=== PATIENT | female | born 1990 | race Asian ===

== ENCOUNTER 2019-08-01 19:56 | Emergency (ER) | payer BC, MEDICAID ==
--- NOTE | 2019-08-01 20:17 | Emergency Department Report ---
Blank Doc - Documentation Documentation: 28-year-old famle that presents with nausea, pelvic pain and vaginal bleeding. This initial assessment/diagnostic orders/clinical plan/treatment(s) is/are subject to change based on patient's health status, clinical progression and re- assessment by fellow clinical providers in the ED. Further treatment and workup at subsequent clinical providers discretion. Patient/guardians urged not to elope from the ED as their condition may be serious if not clinically assessed and managed. Initial orders include: 1- Patient sent to [facility] for further evaluation and treatment 2- labs 3- UA 4- US OB
[2019-08-01 20:43] LABS: Basophils # (Auto) 0.1 K/mm3 (0.0-0.1); Basophils % (Auto) 0.5 % (0.0-1.8); Eosinophils # (Auto) 0.1 K/mm3 (0.0-0.4); Eosinophils % (Auto) 0.8 % (0.0-4.3); Hematocrit 35.4 % (30.3-42.9); Hemoglobin 11.9 gm/dl (10.1-14.3); Lymphocytes # (Auto) 2.4 K/mm3 (1.2-5.4); Lymphocytes % (Auto) 19.6 % (13.4-35.0); Mean Corpuscular HGB Conc 34 % (30-34); Mean Corpuscular Volume 85 fl (79-97); Monocytes # (Auto) 0.6 K/mm3 (0.0-0.8); Monocytes % (Auto) 5.3 % (0.0-7.3); Platelet Count 213 K/mm3 (140-440); Red Blood Count 4.18 M/mm3 (3.65-5.03); Red Cell Distribution Width 12.7 % (13.2-15.2)
[2019-08-01 21:30] LABS: Bilirubin,Urine NEG (Negative); Blood,Urine SM (Negative); Color,Urine Straw (Yellow); Protein,Urine <15 mg/dL mg/dL (Negative); Urobilinogen,Urine < 2.0 mg/dL (<2.0); WBC,Urine < 1.0 /HPF (0.0-6.0)
--- NOTE | 2019-08-02 00:01 | Emergency Department Report ---
ED Female HPI - General Chief complaint: Vaginal Bleeding Stated complaint: 3 MNTS PREG BLEEDING Time Seen by Provider: 08/01/19 20:16 Source: patient, family, RN notes reviewed Mode of arrival: Ambulatory Limitations: No Limitations - History of Present Illness Initial comments: During the history and physical examination, including the gynecologic examination, I am unemployment insurance hearing officer and escorted by meat counter clerk Td Crowe MATZO FORMING MACHINE OPERATOR: [facility] This is a pleasant 28-year-old female, 1, para 0, last menstrual period April, presenting to the ER with crampy vaginal bleeding, minimal vaginal discomfort. No trauma. Bleeding is less than 2 pads soaked per hour. Denies urinary symptoms. Denies additional complaints, reports that she feels quite anxious. No history of miscarriage that she is aware of. MD Complaint: vaginal bleeding -: Gradual, hour(s) Location: suprapubic Radiation: non-radiating Severity: mild Quality: cramping Consistency: intermittent Improves with: none Worsens with: none Are you Now?: Yes Associated Symptoms: vaginal bleeding, abdominal pain - Related Data Sexually active: Yes Previous Rx's Medication Instructions Recorded Last Taken Type Ferrous Sulfate [Feosol 325 MG tab] 325 mg PO BID #60 tablet 03/17/16 Unknown Rx HYDROcodone/APAP 5-325 [[place] 1 each PO Q6HR PRN #30 tablet 03/17/16 Unknown Rx 5-325 mg TAB] Ibuprofen [Motrin] 800 mg PO Q8HR PRN #30 tablet 03/17/16 Unknown Rx Allergies Allergy/AdvReac Type Severity Reaction Status Date / Time No Known Allergies Allergy Verified 03/16/16 03:36 ED Review of Systems ROS: Stated complaint: 3 MNTS PREG BLEEDING Other details as noted in HPI Constitutional: denies: fever Eyes: denies: eye discharge ENT: denies: epistaxis Respiratory: denies: wheezing Cardiovascular: denies: syncope Gastrointestinal: denies: vomiting Genitourinary: abnormal menses Musculoskeletal: denies: back pain Skin: denies: lesions Neurological: denies: weakness Psychiatric: anxiety ED Past Medical Hx - Past Medical History Previous Medical History?: No Hx Hypertension: No Hx CVA: No Hx Heart Attack/AMI: No Hx Congestive Heart Failure: No Hx Diabetes: No Hx Deep Vein Thrombosis: No Hx Pulmonary Embolism: No Hx GERD: No Hx Liver Disease: No Hx Renal Disease: No Hx Sickle Cell Disease: No Hx Arthritis: No Hx Headaches / Migraines: No Hx Seizures: No Hx Kidney Stones: No Hx Psychiatric Treatment: No Hx Asthma: No Hx COPD: No Hx Tuberculosis: No Hx Dementia: No Hx HIV: No - Surgical History Past Surgical History?: No Hx Coronary Stent: No Hx Open Heart Surgery: No Hx Pacemaker: No Hx Internal Defibrillator: No Hx Cholecystectomy: No Hx Appendectomy: No Hx Breast Surgery: No - Social History Smoking Status: Never Smoker Substance Use Type: None - Medications Home Medications: Home Medications Medication Instructions Recorded Confirmed Last Taken Type Ferrous Sulfate [Feosol 325 MG tab] 325 mg PO BID #60 tablet 03/17/16 Unknown Rx HYDROcodone/APAP 5-325 [[place] 1 each PO Q6HR PRN #30 tablet 03/17/16 Unknown Rx 5-325 mg TAB] Ibuprofen [Motrin] 800 mg PO Q8HR PRN #30 tablet 03/17/16 Unknown Rx ED Physical Exam - General Limitations: No Limitations General appearance: alert, in no apparent distress - Head Head exam: Present: atraumatic, normocephalic - Eye Eye exam: Present: normal appearance, EOMI. Absent: nystagmus - ENT ENT exam: Present: normal exam, normal orophraynx, mucous membranes moist, normal external ear exam - Neck Neck exam: Present: normal inspection, full ROM. Absent: tenderness, meningismus - Respiratory Respiratory exam: Present: normal lung sounds bilaterally. Absent: respiratory distress - Cardiovascular Cardiovascular Exam: Present: regular rate, normal rhythm, normal heart sounds. Absent: bradycardia, tachycardia, irregular rhythm, systolic murmur, diastolic murmur, rubs, gallop - GI/Abdominal GI/Abdominal exam: Present: soft, normal bowel sounds. Absent: distended, tenderness, guarding, rebound, rigid, pulsatile mass - External exam: Present: normal external exam, other (chaperoned by meat counter clerk Td Crowe). Absent: erythema, swelling, lesions, lacerations Speculum exam: Present: vaginal bleeding. Absent: tissue, laceration - Extremities Exam Extremities exam: Present: normal inspection, full ROM, other (2+ pulses noted in the bilateral upper, lower extremities. There is no long bone tenderness. Musculoskeletal compartments are soft. The pelvis is stable.). Absent: pedal edema, joint swelling, calf tenderness - Back Exam Back exam: Present: normal inspection, full ROM. Absent: tenderness, CVA tenderness (R), CVA tenderness (L), paraspinal tenderness, vertebral tenderness - Neurological Exam Neurological exam: Present: alert, oriented X3, normal gait, other (there is no facial droop. The tongue is midline. Extraocular movements are intact bilaterally. Patient speaking in full complete sentences. Shoulder shrug is intact bilaterally. Hearing is grossly intact bilaterally. Visual acuity intact to finger counting and color perception at a close distance. 5/5 strength 4 extremities. Sensation intact to light touch in 4 extremities.). Absent: motor sensory deficit - Psychiatric Psychiatric exam: Present: anxious - Skin Skin exam: Present: warm, dry, intact, normal color. Absent: rash ED Course Vital Signs 08/01/19 20:02 Temperature 97.9 F Pulse Rate 81 Respiratory 18 Rate Blood Pressure 125/76 O2 Sat by Pulse 97 Oximetry ED Medical Decision Making - Lab Data Result diagrams: 08/01/19 20:29 Vital Signs 08/01/19 20:02 Temperature 97.9 F Pulse Rate 81 Respiratory 18 Rate Blood Pressure 125/76 O2 Sat by Pulse 97 Oximetry Lab Results 08/01/19 08/01/19 08/01/19 Range/Units 20:29 20:29 20:29 WBC 12.1 H (4.5-11.0) K/mm3 RBC 4.18 (3.65-5.03) M/mm3 Hgb 11.9 (10.1-14.3) gm/dl Hct 35.4 (30.3-42.9) % MCV 85 (79-97) fl MCH 29 (28-32) pg MCHC 34 (30-34) % RDW 12.7 L (13.2-15.2) % Plt Count 213 (140-440) K/mm3 Lymph % (Auto) 19.6 (13.4-35.0) % [place] % (Auto) 5.3 (0.0-7.3) % Eos % (Auto) 0.8 (0.0-4.3) % Baso % (Auto) 0.5 (0.0-1.8) % Lymph # 2.4 (1.2-5.4) K/mm3 [place] # 0.6 (0.0-0.8) K/mm3 Eos # 0.1 (0.0-0.4) K/mm3 Baso # 0.1 (0.0-0.1) K/mm3 Seg Neutrophils % 73.8 H (40.0-70.0) % Seg Neutrophils # 8.9 H (1.8-7.7) K/mm3 HCG, Quant 59706 H (0-4) mIU/mL Urine Color (Yellow) Urine Turbidity (Clear) Urine pH (5.0-7.0) Ur Specific [place] (1.003-1.030) Urine Protein (Negative) mg/dL Urine Glucose (UA) (Negative) mg/dL Urine Ketones (Negative) mg/dL Urine Blood (Negative) Urine Nitrite (Negative) Urine Bilirubin (Negative) Urine Urobilinogen (<2.0) mg/dL Ur Leukocyte Esterase (Negative) Urine WBC (Auto) (0.0-6.0) /HPF Urine RBC (Auto) (0.0-6.0) /HPF Blood Type A POSITIVE 08/01/19 Range/Units Unknown WBC (4.5-11.0) K/mm3 RBC (3.65-5.03) M/mm3 Hgb (10.1-14.3) gm/dl Hct (30.3-42.9) % MCV (79-97) fl MCH (28-32) pg MCHC (30-34) % RDW (13.2-15.2) % Plt Count (140-440) K/mm3 Lymph % (Auto) (13.4-35.0) % [place] % (Auto) (0.0-7.3) % Eos % (Auto) (0.0-4.3) % Baso % (Auto) (0.0-1.8) % Lymph # (1.2-5.4) K/mm3 [place] # (0.0-0.8) K/mm3 Eos # (0.0-0.4) K/mm3 Baso # (0.0-0.1) K/mm3 Seg Neutrophils % (40.0-70.0) % Seg Neutrophils # (1.8-7.7) K/mm3 HCG, Quant (0-4) mIU/mL Urine Color St[place] (Yellow) Urine Turbidity Clear (Clear) Urine pH 7.0 (5.0-7.0) Ur Specific [place] 1.004 (1.003-1.030) Urine Protein <15 mg/dl (Negative) mg/dL Urine Glucose (UA) Neg (Negative) mg/dL Urine Ketones Neg (Negative) mg/dL Urine Blood Sm (Negative) Urine Nitrite Neg (Negative) Urine Bilirubin Neg (Negative) Urine Urobilinogen < 2.0 (<2.0) mg/dL Ur Leukocyte Esterase Neg (Negative) Urine WBC (Auto) < 1.0 (0.0-6.0) /HPF Urine RBC (Auto) 1.0 (0.0-6.0) /HPF Blood Type - Radiology Data Radiology results: report reviewed, image reviewed Print Report Referring Physician: GERA GARZA Patient Name: DWAYNE FERRIS Date of : 1990 Sex: Female Report Date: 2019-08-02 Report Status: [place] [address] Ultrasound Report Signed Patient: DWAYNE FERRIS MR#: [id number] : 1990 Acct:[id number] Age/Sex: 28 / F ADM Date: 08/01/19 Loc: ED Attending Dr: Ordering Physician: GERA GARZA NP Date of Service: 08/01/19 Procedure(s): US OB <= 14 weeks fetus Accession Number(s): [id number] cc: GERA GARZA NP Early obstetrical ultrasound INDICATION: , vaginal spotting TECHNIQUE: Transabdominal COMPARISON: None FINDINGS: Uterus measures 11.1 cm in length. An intrauterine is seen with estimated gestational age of 11 weeks 6 days by crown-rump length. This corresponds with clinical dating. No obvious anomalies are seen at this early stage of . Cardiac activity is noted with heart rate of 176 bpm. Technologist noted body and limb movements. Amniotic fluid appears appropriate for the stage of . Placenta appears to be developing anteriorly though is too early to characterize well. Bilateral ovaries show no abnormalities. Flow is seen in both ovaries. No free fluid is seen. IMPRESSION: Normal-appearing early intrauterine Signer Name: Jaime Lovett MD Signed: 08/02/2019 12:19 AM Workstation Name: [id number] Transcribed By: CASTRO Dictated By: Jaime Lovett MD Electronically Authenticated By: Jaime Lovett MD Signed Date/Time: 08/02/19 0019 - Medical Decision Making Differential diagnosis, including but not limited to: Miscarriage, threatened miscarriage Assessment and plan: 28-year-old female with scant vaginal bleeding and vaginal cramping. She is afebrile with reassuring vital signs. Abdomen soft and benign, with no rebound, guarding or peritoneal signs. Quantitative hCG reviewed and appreciated, the patient is Rh+, and does not endorse any urinary symptoms. Ultrasound confirms intrauterine , anterior-appearing placenta, without evidence of subchorionic bleed, abruption, or primary a. The patient does not appear to have an emergent medical condition at this time. Patient was counseled on needs to rest, avoid heavy lifting, avoid strenuous physical activity. Threatened miscarriage carry managed expectantly. Reassur ance provided to patient and mother. Patient can follow-up with her outpatient MATZO FORMING MACHINE OPERATOR physician. Critical care attestation.: If time is entered above; I have spent that time in minutes in the direct care of this critically ill patient, excluding procedure time. ED Disposition Clinical Impression: Threatened miscarriage Disposition: DC-01 TO HOME OR SELFCARE Is pt being admited?: No Does the pt Need Aspirin: No Condition: Good Instructions: Threatened Miscarriage (ED) Additional Instructions: Rest, avoid heavy lifting, and avoid strenuous physical activities. Patient may take [id number] Tylenol, 650 mg, by mouth, every 4-6 hours, as needed for pain. The patient should not participate in strenuous physical activity, or sexual activity, until cleared to do so by her MATZO FORMING MACHINE OPERATOR physician. Patient should follow-up with her MATZO FORMING MACHINE OPERATOR physician within the next week. Return to the emergency room right away with projectile vomiting, change in mental status, confusion, bleeding more than 2 pads soaked per hour, new, worsened, different symptoms, or symptoms not present on the initial emergency room evaluation. Please continue current outpatient vitamins. Referrals: [facility] MATZO FORMING MACHINE OPERATOR [Provider Group] - 7-10 days
--- NOTE | 2019-08-02 00:24 | Ultrasound Report ---
Early obstetrical ultrasound INDICATION: , vaginal spotting TECHNIQUE: Transabdominal COMPARISON: None FINDINGS: Uterus measures 11.1 cm in length. An intrauterine is seen with estimated gestati onal age of 11 weeks 6 days by crown-rump length. This corresponds with clinical dating. No obvious a nomalies are seen at this early stage of . Cardiac activity is noted with heart rate o f 176 bpm. Technologist noted body and limb movements. Amniotic fluid appears appropriate for the sta ge of . Placenta appears to be developing anteriorly though is too early to characterize wel l. Bilateral ovaries show no abnormalities. Flow is seen in both ovaries. No free fluid is seen. IMPRESSION: Normal-appearing early intrauterine Signer Name: Jaime Lovett MD Signed: 08/02/2019 12:19 AM Workstation Name: [id number]
[2019-08-02 01:42] VITALS: BP 120/66
== END 2019-08-02 01:30 | disposition home or self-care (01) ==
LOC: ED 19:56
DX: O20.0 Threatened abortion (principal); Z79.899 Other long term (current) drug therapy; Z3A.11 11 weeks gestation of pregnancy
CPT/HCPCS: 36415; 76801; 81001; 84702; 85025; 86900; 86901; 99284

== ENCOUNTER 2019-09-03 12:11 | Emergency (ER) | payer MEDICAID ==
[2019-09-03] MEDS ORDERED: BUTALB/ACETAMINOPHEN/CAFFEINE TAB PO ONE (16:20)
[2019-09-03] MEDS ORDERED: METOCLOPRAMIDE 10 MG/2 ML INJ IV ONE (16:20)
[2019-09-03] MEDS ORDERED: SODIUM CHLORIDE 0.9% 1000 ML 1,000 ML IV ONE (16:20)
--- NOTE | 2019-09-03 16:40 | Emergency Department Report ---
HPI - General Chief Complaint: Headache Time Seen by Provider: 09/03/19 15:36 - HPI HPI: Room 41 The patient is a 28-year-old female presenting with a chief complaint of abdominal cramping nausea and vomiting. The patient states she developed abdominal cramping last night and it worsened this morning. This morning the patient also continued to have nausea and vomiting as well as a mild headache. The patient had Zofran from earlier in her but has not helped. Patient denies vaginal bleeding. Patient denies dysuria or hematuria. Patient denies diarrhea or fever. Patient also complains of bilateral low back pain. The patient states her fianc has been recently ill with nausea vomiting and diarrhea. ED Past Medical Hx - Past Medical History Previous Medical History?: Yes - Family History Family history: no significant - Social History Smoking Status: Never Smoker Substance Use Type: None - Medications Home Medications: Home Medications Medication Instructions Recorded Confirmed Last Taken Type Ferrous Sulfate [Feosol 325 MG tab] 325 mg PO BID #60 tablet 03/17/16 Unknown Rx HYDROcodone/APAP 5-325 [[place] 1 each PO Q6HR PRN #30 tablet 03/17/16 Unknown Rx 5-325 mg TAB] Ibuprofen [Motrin] 800 mg PO Q8HR PRN #30 tablet 03/17/16 Unknown Rx Butalb/Acetamin/Caff 50-325-40 2 tab PO Q8HR PRN #6 tablet 09/03/19 Unknown Rx [Fioricet 50-325-40] Metoclopramide [Reglan] 10 mg PO QID PRN #30 tablet 09/03/19 Unknown Rx ED Review of Systems ROS: Stated complaint: HEADACHED/15 WEEKS Other details as noted in HPI Eyes: denies: eye pain ENT: denies: throat pain Respiratory: no symptoms reported Cardiovascular: denies: chest pain Endocrine: no symptoms reported Gastrointestinal: abdominal pain, nausea, vomiting. denies: diarrhea Genitourinary: denies: dysuria, hematuria, abnormal menses Musculoskeletal: back pain Neurological: headache Physical Exam - Physical Exam Vital Signs: Vital Signs 09/03/19 12:15 Temperature 98 F Pulse Rate 96 H Respiratory 18 Rate Blood Pressure 123/68 O2 Sat by Pulse 99 Oximetry Physical Exam: GENERAL: The patient is well-developed well-nourished female sitting in chair not appearing to be in acute distress. [] HEENT: Normocephalic. Atraumatic. Extraocular motions are intact. Patient has moist mucous membranes. NECK: Supple. Trachea midline CHEST/LUNGS: Clear to auscultation. There is no respiratory distress noted. HEART/CARDIOVASCULAR: Regular. There is no tachycardia. There is no gallop rub or murmur. ABDOMEN: Abdomen is soft, with diffuse discomfort to palpation. Patient has normal bowel sounds. The abdomen is gravid SKIN: There is no rash. There is no edema. There is no diaphoresis. NEURO: The patient is awake, alert, and oriented. The patient is cooperative. The patient has normal speech MUSCULOSKELETAL:There is no evidence of acute injury. ED Course Vital Signs 09/03/19 12:15 Temperature 98 F Pulse Rate 96 H Respiratory 18 Rate Blood Pressure 123/68 O2 Sat by Pulse 99 Oximetry - Reevaluation(s) Reevaluation #1: 09/03/19 17:51 Patient tolerating po ED Medical Decision Making - Lab Data Result diagrams: 09/03/19 16:50 09/03/19 16:50 Laboratory Tests 09/03/19 09/03/19 09/03/19 16:50 16:50 16:50 WBC 12.1 H RBC 4.09 Hgb 12.0 Hct 35.0 MCV 86 MCH 29 MCHC 34 RDW 13.5 Plt Count 184 Lymph % (Auto) 5.2 L [place] % (Auto) 4.4 Eos % (Auto) 0.7 Baso % (Auto) 0.3 Lymph # 0.6 L [place] # 0.5 Eos # 0.1 Baso # 0.0 Seg Neutrophils % 89.4 H Seg Neutrophils # 10.9 H Sodium 135 L Potassium 3.6 Chloride 103.5 Carbon Dioxide 22 Anion Gap 13 BUN 7 Creatinine 0.5 L Estimated GFR > 60 BUN/Creatinine Ratio 14 Glucose 117 H Calcium 8.5 Total Bilirubin 0.40 AST 18 ALT 30 Alkaline Phosphatase 51 Total Protein 6.4 Albumin 3.6 L Albumin/Globulin Ratio 1.3 Lipase 17 Urine Color Urine Turbidity Urine pH Ur Specific [place] Urine Protein Urine Glucose (UA) Urine Ketones Urine Blood Urine Nitrite Urine Bilirubin Urine Urobilinogen Ur Leukocyte Esterase Urine WBC (Auto) Urine RBC (Auto) U Epithel Cells (Auto) Urine Mucus 09/03/19 17:16 WBC RBC Hgb Hct MCV MCH MCHC RDW Plt Count Lymph % (Auto) [place] % (Auto) Eos % (Auto) Baso % (Auto) Lymph # [place] # Eos # Baso # Seg Neutrophils % Seg Neutrophils # Sodium Potassium Chloride Carbon Dioxide Anion Gap BUN Creatinine Estimated GFR BUN/Creatinine Ratio Glucose Calcium Total Bilirubin AST ALT Alkaline Phosphatase Total Protein Albumin Albumin/Globulin Ratio Lipase Urine Color Yellow Urine Turbidity Slightly-cloudy Urine pH 6.0 Ur Specific [place] 1.027 Urine Protein <15 mg/dl Urine Glucose (UA) Neg Urine Ketones 20 Urine Blood Neg Urine Nitrite Neg Urine Bilirubin Neg Urine Urobilinogen 4.0 Ur Leukocyte Esterase Neg Urine WBC (Auto) < 1.0 Urine RBC (Auto) 3.0 U Epithel Cells (Auto) 10.0 Urine Mucus 2+ - Radiology Data Radiology results: report reviewed (pelvic ultrasound), image reviewed (pelvic ultrasound) [address] [address] Ultrasound Report Signed Patient: DWAYNE FERRIS MR#: [id number] : 1990 Acct:[id number] Age/Sex: 28 / F ADM Date: 09/03/19 Loc: ED Attending Dr: Ordering Physician: ERNESTO TORRES MD Date of Service: 09/03/19 Procedure(s): US OB >= 14 weeks Fetus Accession Number(s): [id number] cc: ERNESTO TORRES MD US OB >= 14 weeks Fetus INDICATION / CLINICAL INFORMATION: abdominal cramping. COMPARISON: 08/01/2019 FINDINGS: Single, viable intrauterine in cephalic presentation. heart rate 164. Biparietal diameter 3.4 cm, 16 weeks 3 days. Pelvis, 12.5 cm, 16 weeks 2 days. Abdominal circumference 10.9 cm, 16 weeks 5 days. Femur length 2.1 cm, 16 weeks 1 day. IMPRESSION: 1. Single, viable 16 week 3 day intrauterine . Signer Name: Kevyn Quintanilla MD Signed: 09/03/2019 5:08 PM Workstation Name: [id number] Transcribed By: TM Dictated By: Kevyn Quintanilla MD Electronically Authenticated By: Kevyn Quintanilla MD Signed Date/Time: 09/03/191707 DD/ 03 TD/TT: - Differential Diagnosis hyperemesis gravidarum, UTI, gastroenteritis Critical care attestation.: If time is entered above; I have spent that time in minutes in the direct care of this critically ill patient, excluding procedure time. ED Disposition Clinical Impression: Nausea & vomiting, Headache Disposition: TO HOME OR SELFCARE Is pt being admited?: No Does the pt Need Aspirin: No Condition: Stable Instructions: Hyperemesis Gravidarum (ED), Gastroenteritis (ED), Acute Nausea and Vomiting (ED) Prescriptions: Butalb/Acetamin/Caff 50-325-40 [Fioricet 50-325-40] 2 tab PO Q8HR PRN #6 tablet PRN Reason: Headache Metoclopramide [Reglan] 10 mg PO QID PRN #30 tablet PRN Reason: Nausea Referrals: [facility] [Provider Group] - 3-5 Days
[2019-09-03 17:02] LABS: Basophils % (Auto) 0.3 % (0.0-1.8); Eosinophils # (Auto) 0.1 K/mm3 (0.0-0.4); Eosinophils % (Auto) 0.7 % (0.0-4.3); Lymphocytes # (Auto) 0.6 K/mm3 (1.2-5.4); Lymphocytes % (Auto) 5.2 % (13.4-35.0); Mean Corpuscular HGB Conc 34 % (30-34); Mean Corpuscular Volume 86 fl (79-97); Monocytes # (Auto) 0.5 K/mm3 (0.0-0.8); Monocytes % (Auto) 4.4 % (0.0-7.3); Platelet Count 184 K/mm3 (140-440); Red Blood Count 4.09 M/mm3 (3.65-5.03); Red Cell Distribution Width 13.5 % (13.2-15.2)
--- NOTE | 2019-09-03 17:12 | Ultrasound Report ---
US OB >= 14 weeks Fetus INDICATION / CLINICAL INFORMATION: abdominal cramping. COMPARISON: 08/01/2019 FINDINGS: Single, viable intrauterine in cephalic presentation. heart rate 164. Biparietal diameter 3.4 cm, 16 weeks 3 days. Pelvis, 12.5 cm, 16 weeks 2 days. Abdominal circumference 10.9 cm, 16 weeks 5 days. Femur length 2.1 cm, 16 weeks 1 day. IMPRESSION: 1. Single, viable 16 week 3 day intrauterine . Signer Name: Kevyn Quintanilla MD Signed: 09/03/2019 5:08 PM Workstation Name: [id number]
[2019-09-03 17:35] LABS: Alanine Aminotransferase 30 units/L (7-56); Albumin 3.6 g/dL (3.9-5); BUN/Creatinine Ratio 14; Blood Urea Nitrogen 7 mg/dL (7-17); Calcium 8.5 mg/dL (8.4-10.2); Hemolysis Index 5
[2019-09-03 17:41] LABS: Bilirubin,Urine NEG (Negative); Blood,Urine NEG (Negative); Color,Urine Yellow (Yellow); Mucus,Urine 2+ /HPF; Protein,Urine <15 mg/dL mg/dL (Negative); WBC,Urine < 1.0 /HPF (0.0-6.0)
[2019-09-03] MEDS ORDERED: ONDANSETRON 4 MG/2 ML INJ IV PRN (17:51)
[2019-09-03 18:54] VITALS: BP 126/78
== END 2019-09-03 18:39 | disposition home or self-care (01) ==
LOC: ED 12:11
DX: R11.2 Nausea with vomiting, unspecified (principal); R51 Headache; Z79.1 Long term (current) use of non-steroidal anti-inflammatories (NSAID); Z79.899 Other long term (current) drug therapy
CPT/HCPCS: 36415; 76805; 80053; 81001; 83690; 84702; 85025; 96361; 96374; 99284; J2765; J7030

== ENCOUNTER 2020-02-03 14:46 | Inpatient (IN) | payer MEDICAID ==
[2020-02-03] MEDS ORDERED: LACTATED RINGERS 1,000 ML ONE (15:18)
[2020-02-03] MEDS ORDERED: LIDOCAINE (2%) 20 MG/1 ML VIAL 20 ML MDV INFILTRATI ONE (15:54)
[2020-02-03] MEDS ORDERED: DINOPROSTONE 10 MG VAG SUPP VG ONE (15:54)
[2020-02-03] MEDS ORDERED: MINERAL OIL 30 ML ORAL LIQD PO PRN (15:54)
[2020-02-03] MEDS ORDERED: ePHEDrine SULFATE 50 MG/1 ML INJ IV PRN (15:54)
[2020-02-03] MEDS ORDERED: TERBUTALINE 1 MG/1 ML INJ IVP PRN (15:54)
[2020-02-03] MEDS ORDERED: TERBUTALINE 1 MG/1 ML INJ SUB-Q PRN (15:54)
[2020-02-03] MEDS ORDERED: MAGNESIUM SULFATE 4 GM/100 ML BAG IV ONE (15:57)
[2020-02-03] MEDS ORDERED: MAGNESIUM SULFATE 40GM/1000ML 40 GM/1,000 ML BAG IV SCH (16:00)
[2020-02-03] MEDS ORDERED: OXYTOCIN DRIP 30 UNITS/500 ML BAG IV SCH (16:00)
[2020-02-03] MEDS ORDERED: OXYTOCIN 20 UNIT/1000ML DRIP 20 UNITS/1,000 ML BAG IV SCH (16:00)
[2020-02-03 16:24] LABS: Bacteria,Urine 1+ /HPF (Negative); Bilirubin,Urine NEG (Negative); Blood,Urine NEG (Negative); Color,Urine Yellow (Yellow); Mucus,Urine FEW /HPF; Protein,Urine <15 mg/dL mg/dL (Negative); Urobilinogen,Urine < 2.0 mg/dL (<2.0); WBC,Urine < 1.0 /HPF (0.0-6.0)
[2020-02-03 16:25] LABS: Hematocrit 36.8 % (30.3-42.9); Hemoglobin 12.9 gm/dl (10.1-14.3); Mean Corpuscular HGB Conc 35 % (30-34); Mean Corpuscular Volume 87 fl (79-97); Platelet Count 158 K/mm3 (140-440); Red Blood Count 4.26 M/mm3 (3.65-5.03); Red Cell Distribution Width 13.4 % (13.2-15.2)
[2020-02-03 16:45] LABS: Alanine Aminotransferase 19 units/L (7-56); Uric Acid 5.3 mg/dL (3.5-7.6)
[2020-02-03] MEDS: LACTATED RINGERS 1,000 ML IV SCH (23:50)
[2020-02-04] MEDS ORDERED: MAGNESIUM SULFATE 4 GM/100 ML BAG IV ONE (01:15)
[2020-02-04] MEDS: fentaNYL 100 MCG/2 ML INJ IV PRN ×3 (01:57→23:59)
[2020-02-04] MEDS ORDERED: ZOLPIDEM 5 MG TAB PO PRN (03:13)
[2020-02-04] MEDS ORDERED: ONDANSETRON 4 MG/2 ML INJ IV PRN (03:16)
[2020-02-04] MEDS ORDERED: ONDANSETRON 4 MG/2 ML INJ ONE (03:19)
[2020-02-04] MEDS: ACETAMINOPHEN 325 MG TAB PO PRN ×2 (06:33→17:08)
[2020-02-04] MEDS: PROMETHAZINE 25 MG RECT SUPP PR PRN ×2 (09:45→19:17)
[2020-02-04] MEDS: LACTATED RINGERS 1,000 ML IV SCH ×2 (10:00→19:17)
[2020-02-04] MEDS ORDERED: miSOPROStol 25 MCG TAB VG PRN (10:30)
--- NOTE | 2020-02-04 10:42 | History and Physical Report ---
History of Present Illness Date of examination: 02/03/20 Date of admission: 02/03/20 15:02 Chief complaint: Induction of labor History of present illness: 29-year-old G1, P0 at 38+3 weeks who presents for induction of labor for gestational hypertension and diabetes controlled with diet. Per the recommendation of maternal- medicine that the patient be admitted for induction. At the time of admission the patient had an unfavorable cervix and will be admitted for cervical ripening. Past History Past Medical History: other (Gestational hypertension and diabetes) Past Surgical History: other (Laparoscopy for ovarian cystectomy) Social history: single - Obstetrical History Expected Date of Delivery: 02/16/20 Actual Gestation: 38 Week(s) 2 Day(s) : 1 Para: 0 Hx # Term Pregnancies: 0 Number of Pregnancies: 0 Spontaneous Abortions: 0 Induced : 0 Number of Living Children: 0 Medications and Allergies Allergies Allergy/AdvReac Type Severity Reaction Status Date / Time No Known Allergies Allergy Verified 11/06/19 02:36 Home Medications Medication Instructions Recorded Confirmed Last Taken Type Phenergan 1 tab PO Q8HR PRN 02/03/20 02/03/20 02/02/20 History Vit-Fe Fumar-FA 1 tab PO DAILY 02/03/20 02/03/20 02/03/20 History Active Meds: Active Medications Acetaminophen (Tylenol) 325 mg PO Q6H PRN PRN Reason: Pain, Mild (1-3) Last Admin: 02/04/20 06:33 Dose: 325 mg Documented by: Ephedrine Sulfate (Ephedrine Sulfate) 10 mg IV Q2M PRN PRN Reason: Hypotension Fentanyl (Sublimaze) 100 mcg IV Q2H PRN PRN Reason: Pain,Severe (7-10) LABOR PAIN Last Admin: 02/04/20 09:02 Dose: 100 mcg Documented by: Oxytocin/Sodium Chloride (Pitocin/Ns 20 Unit/1000ml Drip) 20 units in 1,000 mls @ 125 mls/hr IV DIRECT DANDRE Oxytocin/Sodium Chloride (Pitocin/Ns 30 Unit/500ml) 30 units in 500 mls @ 1 mls/hr IV TITR DANDRE; Protocol Lactated Ringer's (Lactated Ringers) 1,000 mls @ 125 mls/hr IV DIRECT DANDRE Last Admin: 02/04/20 10:00 Dose: 125 mls/hr Documented by: Magnesium Sulfate (Magnesium Sulfate 40gm/1000ml) 40 gm in 1,000 mls @ 50 mls/hr IV DIRECT DANDRE Last Admin: 02/04/20 01:14 Dose: 2 gm/hr, 50 mls/hr Documented by: Mineral Oil (Mineral Oil) 30 ml PO QHS PRN PRN Reason: Constipation Misoprostol (Cytotec) 25 mcg VG Q4H PRN PRN Reason: Premature Labor Ondansetron HCl (Zofran) 4 mg IV Q4H PRN PRN Reason: Nausea And Vomiting Last Admin: 02/04/20 07:27 Dose: 4 mg Documented by: Promethazine HCl (Phenergan) 25 mg MS Q6H PRN PRN Reason: Nausea And Vomiting Terbutaline Sulfate (Brethine) 0.25 mg SUB-Q ONCE PRN PRN Reason: Hyperstimulation/Hypertonicity Terbutaline Sulfate (Brethine) 0.25 mg IVP ONCE PRN PRN Reason: Hyperstimulation/Hypertonicity Zolpidem Tartrate (Ambien) 5 mg PO QHS PRN PRN Reason: Sleep Review of Systems All systems: negative Genitourinary: no pelvic pain, no contractions - Vital Signs Vital signs: Vital Signs Pulse BP 82 150/89 02/03/20 15:24 02/03/20 15:24 Temp Pulse Resp BP Pulse Ox 98.1 F 86 15 118/59 97 02/03/20 19:33 02/04/20 10:37 02/04/20 07:22 02/04/20 09:22 02/04/20 10:37 - Physical Exam Breasts: Positive: deferred Cardiovascular: Regular rate Lungs: Positive: Clear to auscultation Results Result Diagrams: 02/03/20 16:00 02/03/20 16:00 Abnormal lab results 02/03/20 02/03/20 02/04/20 Range/Units 16:00 16:00 06:04 MCHC 35 H (30-34) % Creatinine 0.5 L (0.7-1.2) mg/dL Magnesium 4.80 H (1.7-2.3) mg/dL All other labs normal. Assessment and Plan - Patient Problems (1) Gestational hypertension Current Visit: Yes Status: Acute Plan to address problem: Admit for induction of labor Will initiate magnesium sulfate therapy (2) Gestational diabetes Current Visit: Yes Status: Acute
[2020-02-04] MEDS ORDERED: FAMOTIDINE 20 MG/2 ML INJ IV ONE (20:40)
[2020-02-05] MEDS: LACTATED RINGERS 1,000 ML IV SCH ×3 (02:54→11:47)
[2020-02-05] MEDS ORDERED: DEXMEDETOMIDINE 200 MCG/2 ML VIAL IV ONE (03:46)
[2020-02-05] MEDS ORDERED: ePHEDrine SULFATE 50 MG/1 ML INJ IV PRN (04:31)
[2020-02-05] MEDS ORDERED: NALOXONE 2 MG/2 ML INJ IV PRN (04:31)
--- NOTE | 2020-02-05 04:33 | Anesthesia Consultation ---
Anesthesia Consult and Med Hx Date of service: 02/05/20 - Airway Anesthetic Teeth Evaluation: Poor ROM Head & Neck: Adequate Mental/Hyoid Distance: Adequate Mallampati Class: Class III Intubation Access Assessment: Probably Good - Pulmonary Exam CTA: Yes - Cardiac Exam Cardiac Exam: RRR - Pre-Operative Health Status ASA Pre-Surgery Classification: ASA3 Proposed Anesthetic Plan: Epidural - Pulmonary Hx Smoking: No Hx Asthma: No Hx Respiratory Symptoms: No SOB: No COPD: No Home Oxygen Therapy: No Hx Pneumonia: No Hx Sleep Apnea: No - Cardiovascular System Hx Hypertension: Yes Hx Coronary Artery Disease: No Hx Heart Attack/AMI: No Hx Angina: No Hx Percutaneous Transluminal Coronary Angioplasty (PTCA): No Hx Cardia Arrhythmia: No Hx Pacemaker: No Hx Internal Defibrillator: No Hx Valvular Heart Disease: No Hx Heart Murmur: No - Central Nervous System Hx Neuromuscular Disorder: No Hx Seizures: No CVA: No Hx Back Pain: No Hx Psychiatric Problems: No - Gastrointestinal Hx Ulcer: No Hx Gastroesophageal Reflux Disease: Yes - Endocrine Hx Renal Disease: No Hx End Stage Renal Disease: No Hx Cirrhosis: No Hx Liver Disease: No Hx Insulin Dependent Diabetes: No Hx Non-Insulin Dependent Diabetes: Yes Hx Thyroid Disease: No Hx Hypothyroidism: No Hx Hyperthyroidism: No - Hematic Hx Anemia: No Hx Sickle Cell Disease: No - Other Systems Hx Alcohol Use: No Hx Substance Use: No Hx Cancer: No Hx Obesity: Yes
--- NOTE | 2020-02-05 04:42 | Progress Note ---
Labor Epidural - Labor Epidural Start Time: 03:46 Stop Time: 04:15 Performed by:: CLARICE STEINER Procedure: Patient is requesting combined spinal epidural for labor and pain. H&P, labs were reviewed. All questions and concerns were answered. Informed consent was obtained. Timeout performed. Patient in sitting position on side of bed. Sterile prep and drape was performed. [3] mL 1% lidocaine skin wheal at L [3]-L [4]. 18-gauge Touhy epidural needle advanced to [id number] using air technique, [8cm]. 27-gauge spinal needle advanced [clear positive free- flowing] CSF. spinal dose of [Precedex 10 mcg]. Epidural catheter advanced to [15] cm. [Negative] Aspiration, [negative] test dose. Sterile dressing applied. Patient tolerated procedure well.
[2020-02-05] MEDS ORDERED: fentaNYL-BUPIV 2 MCG/ML-0.125% 200 MCG/100 ML BAG EPIDURAL SCH (05:00)
--- NOTE | 2020-02-05 08:30 | Progress Note ---
Assessment and Plan - Patient Problems (1) Gestational hypertension Current Visit: Yes Status: Acute Plan to address problem: Continue with Pitocin induction Anticipate vaginal delivery. (2) Gestational diabetes Current Visit: Yes Status: Acute Subjective - Subjective Date of service: 02/05/20 Interval history: Patient undergoing induction of labor. She received vaginal Cervidil and Cytotec and is currently transition to Pitocin. The patient had spontaneous rupture membranes around 2 AM with clear fluid. She has had cervical change from 2 cm to 6 cm. Category 1 tracing. IUPC placed. We will continue Pitocin induction. Magnesium sulfate therapy had to be discontinued secondary to significant GI symptoms. Patient reports: no new complaints Objective - Vital Signs Vital Signs: Vital Signs - 12hr 02/04/20 02/04/20 02/04/20 20:52 21:15 21:20 Temperature Pulse Rate 96 H 105 H 108 H Respiratory Rate Blood Pressure 124/65 Blood Pressure [Right] O2 Sat by Pulse 97 95 Oximetry 02/04/20 02/04/20 02/04/20 21:25 21:30 21:35 Temperature Pulse Rate 112 H 105 H 105 H Respiratory Rate Blood Pressure Blood Pressure [Right] O2 Sat by Pulse 95 96 96 Oximetry 02/04/20 02/04/20 02/04/20 21:40 21:45 21:47 Temperature Pulse Rate 107 H 105 H 100 H Respiratory Rate Blood Pressure 143/78 Blood Pressure [Right] O2 Sat by Pulse 96 95 Oximetry 02/04/20 02/04/20 02/04/20 21:50 21:55 22:00 Temperature Pulse Rate 101 H 97 H 101 H Respiratory Rate Blood Pressure Blood Pressure [Right] O2 Sat by Pulse 95 95 95 Oximetry 02/04/20 02/04/20 02/04/20 22:02 22:17 22:48 Temperature Pulse Rate 121 H 103 H 100 H Respiratory Rate Blood Pressure 139/83 138/78 Blood Pressure [Right] O2 Sat by Pulse 94 Oximetry 02/04/20 02/04/20 02/04/20 23:17 23:48 23:58 Temperature Pulse Rate 93 H 86 86 Respiratory Rate Blood Pressure 145/85 181/87 153/77 Blood Pressure [Right] O2 Sat by Pulse Oximetry 02/05/20 02/05/20 02/05/20 00:17 00:47 01:18 Temperature Pulse Rate 93 H 102 H 100 H Respiratory Rate Blood Pressure 138/81 134/75 133/82 Blood Pressure [Right] O2 Sat by Pulse Oximetry 02/05/20 02/05/20 02/05/20 01:47 02:17 02:30 Temperature 98.8 F Pulse Rate 100 H 103 H Respiratory 18 Rate Blood Pressure 138/82 122/72 Blood Pressure [Right] O2 Sat by Pulse Oximetry 02/05/20 02/05/20 02/05/20 02:43 02:47 02:48 Temperature Pulse Rate 102 H 95 H 98 H Respiratory Rate Blood Pressure 159/91 Blood Pressure [Right] O2 Sat by Pulse 97 96 Oximetry 02/05/20 02/05/20 02/05/20 02:53 02:58 03:03 Temperature Pulse Rate 93 H 96 H 95 H Respiratory Rate Blood Pressure Blood Pressure [Right] O2 Sat by Pulse 99 99 100 Oximetry 02/05/20 02/05/20 02/05/20 03:07 03:08 03:13 Temperature Pulse Rate 90 90 102 H Respiratory Rate Blood Pressure Blood Pressure [Right] O2 Sat by Pulse 93 97 99 Oximetry 02/05/20 02/05/20 02/05/20 03:17 03:18 03:23 Temperature Pulse Rate 91 H 100 H 93 H Respiratory Rate Blood Pressure 162/89 Blood Pressure [Right] O2 Sat by Pulse 94 100 100 Oximetry 02/05/20 02/05/20 02/05/20 03:28 03:33 03:38 Temperature Pulse Rate 92 H 91 H 94 H Respiratory Rate Blood Pressure Blood Pressure [Right] O2 Sat by Pulse 91 97 99 Oximetry 02/05/20 02/05/20 02/05/20 03:43 03:47 03:48 Temperature Pulse Rate 104 H 85 91 H Respiratory Rate Blood Pressure 123/67 Blood Pressure [Right] O2 Sat by Pulse 97 98 Oximetry 02/05/20 02/05/20 02/05/20 03:50 03:52 03:53 Temperature Pulse Rate 96 H 88 89 Respiratory Rate Blood Pressure 133/74 172/80 Blood Pressure [Right] O2 Sat by Pulse 96 Oximetry 02/05/20 02/05/20 02/05/20 03:54 03:56 03:58 Temperature Pulse Rate 88 90 90 Respiratory Rate Blood Pressure 179/77 161/80 159/82 Blood Pressure [Right] O2 Sat by Pulse 98 Oximetry 02/05/20 02/05/20 02/05/20 04:00 04:02 04:03 Temperature Pulse Rate 86 89 94 H Respiratory Rate Blood Pressure 151/73 148/74 Blood Pressure [Right] O2 Sat by Pulse 100 Oximetry 02/05/20 02/05/20 02/05/20 04:04 04:06 04:08 Temperature Pulse Rate 90 83 104 H Respiratory Rate Blood Pressure 152/79 152/74 142/84 Blood Pressure [Right] O2 Sat by Pulse 99 Oximetry 02/05/20 02/05/20 02/05/20 04:10 04:12 04:13 Temperature Pulse Rate 88 86 89 Respiratory Rate Blood Pressure 160/75 146/71 Blood Pressure [Right] O2 Sat by Pulse 98 Oximetry 02/05/20 02/05/20 02/05/20 04:14 04:16 04:18 Temperature Pulse Rate 120 H 83 104 H Respiratory Rate Blood Pressure 138/69 160/71 157/72 Blood Pressure [Right] O2 Sat by Pulse 97 Oximetry 02/05/20 02/05/20 02/05/20 04:20 04:23 04:28 Temperature Pulse Rate 88 97 H 95 H Respiratory Rate Blood Pressure 159/72 Blood Pressure [Right] O2 Sat by Pulse 99 98 Oximetry 02/05/20 02/05/20 02/05/20 04:33 04:37 04:38 Temperature Pulse Rate 87 92 H 104 H Respiratory Rate Blood Pressure 121/77 Blood Pressure [Right] O2 Sat by Pulse 98 98 Oximetry 02/05/20 02/05/20 02/05/20 04:44 04:47 04:52 Temperature Pulse Rate 108 H 105 H Respiratory 16 Rate Blood Pressure 109/69 Blood Pressure [Right] O2 Sat by Pulse 98 97 Oximetry 02/05/20 02/05/20 02/05/20 04:57 05:02 05:06 Temperature Pulse Rate 95 H 98 H 90 Respiratory Rate Blood Pressure 115/73 Blood Pressure [Right] O2 Sat by Pulse 97 98 Oximetry 02/05/20 02/05/20 02/05/20 05:07 05:12 05:15 Temperature 98.9 F Pulse Rate 91 H 91 H Respiratory 16 Rate Blood Pressure Blood Pressure [Right] O2 Sat by Pulse 97 97 Oximetry 02/05/20 02/05/20 02/05/20 05:17 05:22 05:27 Temperature Pulse Rate 94 H 96 H 95 H Respiratory Rate Blood Pressure 117/67 Blood Pressure [Right] O2 Sat by Pulse 97 97 97 Oximetry 02/05/20 02/05/20 02/05/20 05:32 05:36 05:37 Temperature Pulse Rate 95 H 91 H 92 H Respiratory Rate Blood Pressure 122/72 Blood Pressure [Right] O2 Sat by Pulse 97 97 Oximetry 02/05/20 02/05/20 02/05/20 05:42 05:47 05:52 Temperature Pulse Rate 92 H 92 H 94 H Respiratory Rate Blood Pressure 141/80 Blood Pressure [Right] O2 Sat by Pulse 98 97 98 Oximetry 02/05/20 02/05/20 02/05/20 05:57 06:02 06:07 Temperature Pulse Rate 92 H 90 91 H Respiratory Rate Blood Pressure Blood Pressure [Right] O2 Sat by Pulse 97 97 98 Oximetry 02/05/20 02/05/20 02/05/20 06:08 06:12 06:17 Temperature Pulse Rate 90 95 H 91 H Respiratory Rate Blood Pressure 140/81 Blood Pressure [Right] O2 Sat by Pulse 98 97 Oximetry 02/05/20 02/05/20 02/05/20 06:22 06:27 06:32 Temperature Pulse Rate 95 H 90 87 Respiratory Rate Blood Pressure 120/62 Blood Pressure [Right] O2 Sat by Pulse 98 97 97 Oximetry 02/05/20 02/05/20 02/05/20 06:36 06:37 06:42 Temperature Pulse Rate 88 92 H 87 Respiratory Rate Blood Pressure 132/69 Blood Pressure [Right] O2 Sat by Pulse 98 98 Oximetry 02/05/20 02/05/20 02/05/20 06:47 06:51 06:52 Temperature Pulse Rate 88 86 89 Respiratory Rate Blood Pressure 139/68 Blood Pressure [Right] O2 Sat by Pulse 98 98 Oximetry 02/05/20 02/05/20 02/05/20 06:57 07:02 07:06 Temperature Pulse Rate 88 90 87 Respiratory Rate Blood Pressure 141/77 Blood Pressure [Right] O2 Sat by Pulse 98 98 Oximetry 02/05/20 02/05/20 02/05/20 07:07 07:12 07:17 Temperature Pulse Rate 86 96 H 92 H Respiratory Rate Blood Pressure Blood Pressure [Right] O2 Sat by Pulse 99 97 98 Oximetry 0502/05/20 02/05/20 07:20 07:22 07:27 Temperature Pulse Rate 95 H 105 H 88 Respiratory Rate Blood Pressure 131/71 145/76 Blood Pressure [Right] O2 Sat by Pulse 98 99 Oximetry 02/05/20 02/05/20 02/05/20 07:28 07:32 07:37 Temperature 98.2 F Pulse Rate 103 H 91 H 91 H Respiratory 18 Rate Blood Pressure 154/77 Blood Pressure 145/76 [Right] O2 Sat by Pulse 99 99 Oximetry 02/05/20 02/05/20 02/05/20 07:42 07:47 07:52 Temperature Pulse Rate 96 H 95 H 103 H Respiratory Rate Blood Pressure 144/75 Blood Pressure [Right] O2 Sat by Pulse 98 98 98 Oximetry 02/05/20 02/05/20 02/05/20 07:57 08:02 08:07 Temperature Pulse Rate 94 H 101 H 95 H Respiratory Rate Blood Pressure 155/78 Blood Pressure [Right] O2 Sat by Pulse 98 99 99 Oximetry 02/05/20 02/05/20 02/05/20 08:12 08:17 08:22 Temperature Pulse Rate 94 H 96 H 92 H Respiratory Rate Blood Pressure 157/81 Blood Pressure [Right] O2 Sat by Pulse 99 99 98 Oximetry 02/05/20 08:27 Temperature Pulse Rate 97 H Respiratory Rate Blood Pressure Blood Pressure [Right] O2 Sat by Pulse 100 Oximetry - Labs Labs: Abnormal Labs 02/03/20 02/03/20 02/04/20 16:00 16:00 06:04 MCHC 35 H Creatinine 0.5 L Magnesium 4.80 H 02/04/20 02/04/20 02/05/20 Unknown Unknown 00:15 MCHC Creatinine Magnesium 5.50 H 4.60 H 3.30 H Laboratory Results - last 24 hr 02/04/20 02/04/20 02/04/20 23:13 Unknown Unknown POC Glucose 96 Magnesium 5.50 H 4.60 H 02/05/20 00:15 POC Glucose Magnesium 3.30 H
[2020-02-05] MEDS ORDERED: BUPIVACAINE/PF (0.25%) 2.5 MG/ML 10 ML VIAL INFILTRATI ONE (08:41)
[2020-02-05] MEDS ORDERED: ONDANSETRON 4 MG/2 ML INJ IV PRN (12:36)
[2020-02-05] MEDS ORDERED: PROMETHAZINE 25 MG RECT SUPP PR PRN (12:36)
[2020-02-05] MEDS ORDERED: ACETAMINOPHEN 325 MG TAB PO PRN (12:36)
[2020-02-05] MEDS ORDERED: LANOLIN/ZINC/DIMETHICONE (LANSINOH) 7 GM TP PRN (12:36)
[2020-02-05] MEDS ORDERED: WITCH HAZEL/ GLYCERIN PAD TP PRN (12:36)
[2020-02-05] MEDS ORDERED: diphenhydrAMINE 25 MG CAP PO PRN (12:36)
[2020-02-05] MEDS ORDERED: MAGNESIUM HYDROXIDE (MOM) ORAL LIQD UDC PO PRN (12:36)
[2020-02-05] MEDS ORDERED: PROMETHAZINE 25 MG TAB PO PRN (12:36)
[2020-02-05] MEDS ORDERED: HYDROcodone/ACETAMINOPHEN 5-325 MG TAB PO PRN (12:36)
--- NOTE | 2020-02-05 12:40 | Procedure Note ---
OB Delivery Note - Delivery Date of Delivery: 02/05/20 Surgeon: STEFFANY RICE Estimated blood loss: 100cc - Vaginal Delivery presentation: vertex Delivery position: OA Intrapartum events: gestational hypertension Delivery induction: misoprostol Delivery augmentation: pitocin Delivery monitor: external FHT, external uterine Route of delivery: Delivery placenta: spontaneous Delivery cord: nuchal cord, 3 umbilical vessels Episiotomy: none Delivery laceration: 1st degree Delivery repair: vicryl Anesthesia: epidural - A at 1 minute: 7 at 5 minutes: 9 Infant Gender: Male (weight 6lbs 11oz)
[2020-02-05] MEDS: IBUPROFEN 600 MG TAB PO SCH ×2 (13:05→20:26)
--- NOTE | 2020-02-05 15:16 | Post Anesthesia Evaluation ---
- Post Anesthesia Evaluation Patient Participated: Yes Airway Patent: Yes Stable Respiratory Function: Yes Nausea/Vomiting: No Temp > 96.8F: Yes Pain Manageable: Yes Adequeate Hydration: Yes Anesthesia Complications: No Block Receding Appropriately: Yes Patient on Ventilator: No
[2020-02-06 01:08] LABS: Hematocrit 25.5 % (30.3-42.9); Hemoglobin 8.7 gm/dl (10.1-14.3)
[2020-02-06] MEDS: IBUPROFEN 600 MG TAB PO SCH ×3 (03:58→17:27)
--- NOTE | 2020-02-06 07:57 | Progress Note ---
Assessment and Plan A: PPD#1 s/p at term, GDM, Gestational HTN, Obesity P: Routine care. Anticipate discharge tomorrow. Subjective - Subjective Date of service: 02/06/20 Principal diagnosis: s/p , gestational hypertension, GDM, Obesity Interval history: Pt without complaints overnight. Patient reports: appetite normal, voiding normally, pain well controlled, ambulating normally : doing well Objective - Vital Signs Latest vital signs: Vital Signs Temp Pulse Resp BP BP Pulse Ox 02/06/20 00:44 98.2 F 80 20 102/48 98 02/05/20 21:49 86 141/82 02/05/20 21:02 97.4 F L 81 18 145/84 98 02/05/20 14:40 97.6 F 93 H 20 121/58 98 02/05/20 13:45 82 131/59 02/05/20 13:38 86 202/123 02/05/20 13:07 96 H 132/72 02/05/20 13:00 98.3 F 02/05/20 12:52 93 H 142/75 02/05/20 12:37 96 H 157/71 02/05/20 12:32 106 H 154/68 02/05/20 12:22 137 H 151/76 02/05/20 12:20 149 H 99 02/05/20 12:15 107 H 99 02/05/20 12:10 120 H 98 02/05/20 12:07 111 H 151/74 02/05/20 12:05 125 H 96 02/05/20 12:03 53 L 85 02/05/20 12:00 106 H 98 02/05/20 11:55 140 H 96 02/05/20 11:50 101 H 98 02/05/20 11:45 121 H 98 02/05/20 11:40 109 H 98 02/05/20 11:38 98 H 161/76 02/05/20 11:35 89 97 02/05/20 11:30 96 H 98 02/05/20 11:25 94 H 98 02/05/20 11:24 97 H 143/73 02/05/20 10:52 115 H 149/91 02/05/20 10:37 96 H 145/67 02/05/20 10:32 110 H 99 02/05/20 10:27 117 H 99 02/05/20 10:24 139 H 85 02/05/20 10:22 91 H 145/72 99 02/05/20 10:17 103 H 97 02/05/20 10:12 99 H 98 02/05/20 10:07 88 97 02/05/20 10:06 86 145/76 02/05/20 10:02 95 H 97 02/05/20 09:57 94 H 98 02/05/20 09:52 90 141/74 98 02/05/20 09:47 101 H 97 02/05/20 09:42 91 H 98 02/05/20 09:37 98 H 146/82 98 02/05/20 09:32 91 H 97 02/05/20 09:27 92 H 98 02/05/20 09:22 91 H 151/80 97 02/05/20 09:17 88 97 02/05/20 09:12 89 98 02/05/20 09:07 89 148/80 97 02/05/20 09:02 95 H 99 02/05/20 08:57 92 H 98 02/05/20 08:53 86 148/79 02/05/20 08:52 85 97 02/05/20 08:50 84 150/81 02/05/20 08:47 95 H 99 02/05/20 08:46 100 H 161/87 02/05/20 08:42 107 H 98 02/05/20 08:37 98 H 157/88 99 02/05/20 08:32 96 H 98 02/05/20 08:27 97 H 100 02/05/20 08:22 92 H 157/81 98 02/05/20 08:17 96 H 99 02/05/20 08:12 94 H 99 02/05/20 08:07 95 H 155/78 99 02/05/20 08:02 101 H 99 02/05/20 07:57 94 H 98 Intake and Output 02/05/20 02/06/20 02/06/20 22:59 06:59 14:59 Output Total 400 Balance -400 Output: Urine 400 Indwelling Catheter 400 Other: Total, Output Amount 400 - Exam Breasts: Present: deferred Abdomen: Present: soft (obese ) Uterus: Present: fundal height below umbilicus Extremities: Present: normal - Labs Labs: Abnormal lab results 02/05/20 02/06/20 Range/Units 09:13 00:40 Hgb 8.7 L D (10.1-14.3) gm/dl Hct 25.5 L D (30.3-42.9) % POC Glucose 108 H (70-105)
[2020-02-07] MEDS: IBUPROFEN 600 MG TAB PO SCH ×2 (00:01→05:26)
--- NOTE | 2020-02-07 07:00 | Progress Note ---
Assessment and Plan A: PPD#2 s/p at term, GDM, Gestational HTN on Labetalol, Obesity P: Routine care. Anticipate discharge later today. Subjective - Subjective Date of service: 02/07/20 Principal diagnosis: s/p , gestational hypertension, GDM, Obesity Interval history: Pt somewhat agitated this morning secondary to miscommunication with nurses, and concern because her son has jaundice and requires a bilirubin light. She reports less bleeding, and that her back pain is much improved. Patient reports: appetite normal, voiding normally, pain well controlled, ambulating normally : doing well, bottle feeding Objective - Vital Signs Latest vital signs: Vital Signs Temp Pulse Resp BP BP Pulse Ox 02/07/20 04:30 97.9 F 90 18 125/66 98 02/07/20 00:00 97.6 F 88 18 103/44 99 02/06/20 22:44 77 144/72 02/06/20 22:00 97.6 F 77 18 144/72 02/06/20 16:08 98.0 F 88 20 125/68 97 02/06/20 11:31 97.5 F L 90 20 122/68 99 02/06/20 10:00 86 126/54 02/06/20 09:53 86 126/54 02/06/20 09:11 96 H 115/70 02/06/20 07:22 97.7 F 92 H 20 125/69 99 Intake and Output 02/06/20 02/06/20 02/07/20 14:59 22:59 06:59 Intake Total 360 540 Output Total 300 Balance 60 540 Intake: Oral 360 240 Intake, Free Water 300 Output: Urine 300 Void 300 Other: Total, Intake Amount 240 240 Total, Output Amount 300 # Voids Void 1 1 1 - Exam Breasts: Present: deferred Abdomen: Present: soft (obese ) Uterus: Present: fundal height at umbilicus Extremities: Present: edema (1+ pedal edema )
--- NOTE | 2020-02-07 13:35 | Discharge Summary ---
Providers - Providers Date of Admission: 02/03/20 15:02 Date of discharge: 02/07/20 Attending physician: SANDI ALBERTS MD Primary care physician: SANDI ALBERTS MD Hospitalization Reason for admission: induction of labor Delivery: Procedure details: Please see delivery note. Episiotomy: none Laceration: 1st degree Other procedures: none complications: none Discharge diagnosis: IUP at term delivered baby: male Hospital course: Pt was admitted for induction secondary to gestational hypertension and gestational diabetes. She ultimately had a spontaneous vaginal delivery which she tolerated well. Her course was uncomplicated and she met discharge criteria on PPD#2. She will follow up in the office in 1 week with Bandar Reddy CNM. Condition at discharge: Stable Disposition: TO HOME OR SELFCARE - Discharge Diagnoses (1) Obesity Status: Acute Qualifiers: Obesity classification: adult class 2 (BMI 35 - 39.9) Serious obesity comorbidity presence: unspecified whether serious comorbidity present Body mass index: BMI 35.0-35.9 (2) Term of male Status: Acute (3) Gestational diabetes Status: Acute Qualifiers: Gestational diabetes mellitus control: unspecified Trimester: third trimester Qualified Code(s): O24.419 - Gestational diabetes mellitus in , unspecified control (4) Gestational hypertension Status: Acute Qualifiers: Trimester: third trimester Qualified Code(s): O13.3 - Gestational [-induced] hypertension without significant proteinuria, third trimester Plan - Discharge Medications Prescriptions: Ferrous Sulfate [Feosol 325 MG tab] 325 mg PO BID #60 tablet labetaloL [Labetalol 100mg TAB] 100 mg PO BID #60 tablet labetaloL [Labetalol 200mg TAB] 200 mg PO BID #60 tablet Ibuprofen [Motrin] 600 mg PO Q6H PRN #30 tablet PRN Reason: Pain HYDROcodone/APAP 5-325 [[place] 5/325] 1 each PO Q6HR PRN #20 tablet PRN Reason: Pain - Provider Discharge Summary Activity: routine, no sex for 6 weeks, no heavy lifting 4 weeks, no strenuous exercise Diet: routine Instructions: routine Additional instructions: [] Smoking cessation referral if applicable(refer to patient education folder for contact #) [] Refer to [facility] Booklet Call your doctor immediately for: * Fever > 100.5 * Heavy vaginal bleeding ( >1 pad per hour) * Severe persistent headache * Shortness of breath * Reddened, hot, painful area to leg or breast * Drainage or odor from incision. * Keep incision clean and dry at all times and follow doctor's instructions regarding bathing/showering - Follow up plan Follow up: BANDAR REDDY CNM [Advanced Practice Nurse] - 7 Days (Please call to schedule your appt ) Forms: [facility] Discharge Summary
[2020-02-07 15:13] VITALS: BP 120/63
== END 2020-02-07 16:00 | disposition home or self-care (01) | DRG 775 ==
LOC: TRG 14:46 → LD 15:02 → OB 02-05 14:33
PROVIDERS: ADMIT Obstetrics & Gynecology; ATTEND Obstetrics & Gynecology
PROC: 10E0XZZ Delivery of Products of Conception, External Approach (ICD-10-PCS; principal; 2020-02-05)
PROC: 3E0R3BZ Introduction of Anesthetic Agent into Spinal Canal, Percutaneous Approach (ICD-10-PCS; 2020-02-05)
PROC: 00HU33Z Insertion of Infusion Device into Spinal Canal, Percutaneous Approach (ICD-10-PCS; 2020-02-05)
PROC: 3E0P7VZ Introduction of Hormone into Female Reproductive, Via Natural or Artificial Opening (ICD-10-PCS; 2020-02-05)
PROC: 10H07YZ Insertion of Other Device into Products of Conception, Via Natural or Artificial Opening (ICD-10-PCS; 2020-02-05)
DX: O13.4 Gestational [pregnancy-induced] hypertension without significant proteinuria, complicating childbirth (principal); O99.62 Diseases of the digestive system complicating childbirth; O99.214 Obesity complicating childbirth; E66.9 Obesity, unspecified; O69.81X0 Labor and delivery complicated by cord around neck, without compression, not applicable or unspecified; O70.0 First degree perineal laceration during delivery; O24.420 Gestational diabetes mellitus in childbirth, diet controlled; K21.9 Gastro-esophageal reflux disease without esophagitis; Z3A.38 38 weeks gestation of pregnancy; Z37.0 Single live birth
CPT/HCPCS: 36415; 59200; 81001; 82565; 82962; 83615; 83735; 84450; 84460; 84550; 85014; 85018; 85027; 86850; 86900; 86901; G0378; J2405; J2590; J3010; J3475; J3490; J7120

== ENCOUNTER 2022-02-17 09:15 | Emergency (ER) | payer MEDICAID ==
[2022-02-17 09:24] VITALS: BP 143/89
== END 2022-02-18 14:28 | disposition left against medical advice (07) ==
LOC: ED 09:15
DX: R10.9 Unspecified abdominal pain (principal); R51.9 Headache, unspecified; Z53.21 Procedure and treatment not carried out due to patient leaving prior to being seen by health care provider